=== PATIENT | male | born 1950 | race Caucasian/White ===

== ENCOUNTER 2018-04-12 23:29 | Emergency (ER) | payer MEDICARE, OTHER ==
[2018-04-12] MEDS ORDERED: RINGERS SOLUTION,LACTATED 1,000 ML IV ONE (23:41)
[2018-04-12] MEDS ORDERED: MORPHINE SULFATE 10 MG/ML INJ IV ONE (23:41)
--- NOTE | 2018-04-12 23:43 | ER Document Report ---
ED Medical Screen (RME) - General Chief Complaint: Flank Pain Stated Complaint: URINARY PROBLEM Time Seen by Provider: 04/12/18 23:38 Mode of Arrival: Ambulatory Information source: Patient Notes: 68-year-old male presents to ED for complaint of right flank pain since yesterday. He states he had blood in his urine 1 today. He is alert and oriented respirations regular and unlabored speaking in full sentences. He does have tenderness to the right flank area. He has a history of a triple bypass, cholesterol, and high blood pressure. Lungs are clear to auscultation. I have greeted and performed a rapid initial assessment of this patient. A comprehensive ED assessment and evaluation of the patient, analysis of test results and completion of medical decision making process will be conducted by an additional ED providers. TRAVEL OUTSIDE OF THE [place] IN LAST 30 DAYS: No - Related Data Allergies/Adverse Reactions: No Known Allergies Allergy (Unverified 04/12/18 23:30) Doctor's Discharge - Discharge Referrals: MATY CULLEN MD [Primary Care Provider] - Follow up as needed
[2018-04-13] MEDS ORDERED: ONDANSETRON HCL INJ/PF 4 MG/2 ML SDV IV ONE (00:14)
[2018-04-13 00:33] LABS: ABSOLUTE BASOPHILS # (AUTO) 0.1 10^3/uL (0.0-0.2); ABSOLUTE LYMPHOCYTES (AUTO) 1.3 10^3/uL (0.5-4.7); ABSOLUTE MONOCYTES (AUTO) 0.7 10^3/uL (0.1-1.4); ABSOLUTE NEUT (AUTO) 10.5 10^3/uL (1.7-8.2); BASOPHILS % (AUTO) 0.4 % (0-2); EOSINOPHILS % (AUTO) 0.1 % (0-6); HEMATOCRIT 44.1 % (37.9-51.0); HEMOGLOBIN 15.2 g/dL (13.5-17.0); LYMPHOCYTES % (AUTO) 10.5 % (13-45); MEAN CORPUSCULAR HEMOGLOBIN 31.2 pg (27.0-33.4); MEAN CORPUSCULAR HGB CONC 34.4 g/dL (32.0-36.0); MEAN CORPUSCULAR VOLUME 91 fl (80-97); MONOCYTES % (AUTO) 5.2 % (3-13); PLATELET COUNT 239 10^3/uL (150-450); RED BLOOD COUNT 4.86 10^6/uL (4.35-5.55); SEGMENTED NEUTROPHILS % (AUTO) 83.8 % (42-78); TOTAL CELLS COUNTED % (AUTO) 100 %; WHITE BLOOD COUNT 12.6 10^3/uL (4.0-10.5)
[2018-04-13 00:34] LABS: ALANINE AMINOTRANSFERASE 67 U/L (21-72); ALBUMIN 4.4 g/dL (3.5-5.0); ALKALINE PHOSPHATASE 93 U/L (38-126); ANION GAP 10 (5-19); ASPARTATE AMINO TRANSFERASE 44 U/L (17-59); BILIRUBIN,DIRECT 0.5 mg/dL (0.0-0.4); BILIRUBIN,TOTAL 1.9 mg/dL (0.2-1.3); BLOOD UREA NITROGEN 24 mg/dL (7-20); CALCIUM 9.5 mg/dL (8.4-10.2); CARBON DIOXIDE 24 mmol/L (22-30); CHLORIDE 106 mmol/L (98-107); GLUCOSE 165 mg/dL (75-110); POTASSIUM 4.3 mmol/L (3.6-5.0); SODIUM 140.4 mmol/L (137-145); TOTAL PROTEIN 7.9 g/dL (6.3-8.2)
[2018-04-13 00:44] LABS: APPEARANCE,URINE SLIGHTLY-CLOUDY; BILIRUBIN,URINE NEGATIVE (NEGATIVE); COLOR,URINE YELLOW; GLUCOSE, URINE 50 mg/dL (NEGATIVE); KETONES,URINE TRACE mg/dL (NEGATIVE); LEUKOCYTE ESTERASE,URINE NEGATIVE (NEGATIVE); NITRITE,URINE NEGATIVE (NEGATIVE); PROTEIN,URINE 100 mg/dL (NEGATIVE); URINE SPECIFIC GRAVITY 1.017
[2018-04-13] MEDS ORDERED: KETOROLAC TROMETHAMINE INJ/PF 30 MG/1 ML SDV IV ONE (01:20)
--- NOTE | 2018-04-13 02:03 | RADIOLOGY REPORT (SQ) ---
EXAM DESCRIPTION: CT ABDOMEN WITHOUT IV CONTRAST COMPLETED DATE/TME: 04/12/2018 23:39 CLINICAL HISTORY: 68 years Male, right flank pain Comparison: None. Technique: No contrast. Coronal and sagittal reformat. This exam was performed according to our departmental dose-optimization program, which includes automated exposure control, adjustment of the mA and/or kV according to patient size and/or use of iterative reconstruction technique.[facility]: Dose Right [facility]: CareDose [facility]: Dose Right [facility]: Teradose 4D [facility]: FanFound LIMITATIONS: None Findings: 0.3 cm right ureterovesicular junctional/bladder stone with mild right hydronephrosis-hydroureter. Right perinephric fat stranding. Punctate left nephrolithiasis. Hepatic steatosis. No ascites. No pneumoperitoneum. Normal appendix. Small right inguinal fat only hernia. Unenhanced lower thorax, abdominopelvic structures, and musculoskeleton appear otherwise grossly unremarkable. Impression: 0.3 cm right UVJ/bladder stone with low-grade obstruction.
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
[2018-04-13] MEDS ORDERED: HYDROCODONE/ACETAMINOPHEN 5-325 MG (6 TAB/ER DISP) PO PRN (03:13)
[2018-04-13 03:20] VITALS: BP 155/76
== END 2018-04-13 03:18 | disposition home or self-care (01) ==
LOC: ER 23:29
DX: N13.2 Hydronephrosis with renal and ureteral calculous obstruction (principal); I10 Essential (primary) hypertension
CPT/HCPCS: 99284; 96361; 96374; 96375; 36415; 85025; 80053; 81001; 76380; J1885; J2270; J2405; A9270

== ENCOUNTER 2018-07-27 15:35 | Emergency (ER) | payer MEDICARE, OTHER ==
[2018-07-27 15:41] VITALS: BP 150/81
[2018-07-27] MEDS ORDERED: DIPH/PERTUSS(ACELL)/TETANUS VAC/PF 0.5 ML SYR (>=10YO) IM ONE (15:49)
--- NOTE | 2018-07-27 15:54 | ER Document Report ---
HPI - HPI Patient complains to provider of: fish hook removal Time Seen by Provider: 07/27/18 15:40 Onset: This afternoon Onset/Duration: Sudden Quality of pain: No pain Pain Level: Denies Context: Patient presents emergency department with a fishhook in his right thigh. Patient reports he was cleaning up trash around the dumpster and the fishhook went in his thigh. He reports he does not even fish. Patient went to the urgent care and was sent here because they did not have the tools to remove the fishhook. Does not remember when his last tetanus was. No active bleeding. Associated Symptoms: None Exacerbated by: Denies Relieved by: Denies Similar symptoms previously: Yes Recently seen / treated by doctor: Yes Past Medical History - General Information source: Patient - Social History Smoking Status: Unknown if Ever Smoked Cigarette use (# per day): No Frequency of alcohol use: None Drug Abuse: None Lives with: Family Family History: None Patient has suicidal ideation: No Patient has homicidal ideation: No - Past Medical History Cardiac Medical History: Reports: Hx Hypercholesterolemia, Hx Hypertension Renal/ Medical History: Reports: Hx Kidney Stones. Denies: Hx Peritoneal Dialysis Past Surgical History: Reports: Hx Cardiac Surgery - triple bypass - Immunizations Immunizations up to date: Yes Hx Diphtheria, Pertussis, Tetanus Vaccination: No Vertical Provider Document - CONSTITUTIONAL Agree With Documented VS: Yes Exam Limitations: No Limitations General Appearance: WD/WN, No Apparent Distress - INFECTION CONTROL TRAVEL OUTSIDE OF THE [place] IN LAST 30 DAYS: No - HEENT HEENT: Atraumatic, Normocephalic - NECK Neck: Supple - RESPIRATORY Respiratory: No Respiratory Distress - CARDIOVASCULAR Cardiovascular: Regular Rate - MUSCULOSKELETAL/EXTREMETIES Musculoskeletal/Extremeties: MAEW, FROM, Non-Tender - NEURO Level of Consciousness: Awake, Alert, Appropriate Motor/Sensory: No Motor Deficit - DERM Integumentary: Warm, Dry Adult Front & Back Diagram: 1 - [place] in right anterior thigh. No active bleeding. Unable to visualize if hook has a luther Course - Re-evaluation Re-evalutation: 07/27/18 16:14 Right thigh cleaned with Shur-Clens and normal saline lidocaine injected approximately 2 cc around the fishhook. Distal end of fishhook cut and pushed through skin. Minimal bleeding. Patient tolerated procedure well. He was instructed on the importance of keeping the area clean monitor for signs and symptoms of infection. He was also instructed on Keflex prophylactically for possible infection. He verbalized understanding to all instructions. He was also instructed to follow-up with his primary care for recheck of the area or return here for any concerns. - Vital Signs Vital signs: Temp Pulse Resp BP Pulse Ox 97.5 F 63 18 150/81 H 98 07/27/18 15:40 07/27/18 15:40 07/27/18 15:40 07/27/18 15:40 07/27/18 15:40 Discharge - Discharge Clinical Impression: fish hook removal from thigh Condition: Stable Disposition: HOME, SELF-CARE Instructions: Cephalexin ([facility]), Removal of Subcutaneous Foreign Object ([facility]), Tetanus Immunization Given ([facility]) Additional Instructions: *You have been treated for removal of a fish hook *Take medication as prescribed *Monitor the site for signs of infection such as increasing pain, redness, swelling, warmth *Keep the area clean *Follow up with a primary care provider within one week for recheck *Return to ED for signs of infection, worsening condition, changes, needs Prescriptions: Cephalexin Monohydrate [Keflex 250 Mg Capsule] 250 mg PO QID #20 capsule Forms: Elevated Blood Pressure
== END 2018-07-27 16:29 | disposition home or self-care (01) ==
LOC: ER 15:35
DX: S71.141A Puncture wound with foreign body, right thigh, initial encounter (principal); W45.8XXA Other foreign body or object entering through skin, initial encounter; Y93.89 Activity, other specified; I10 Essential (primary) hypertension
CPT/HCPCS: 90471; 90715; 99283